=== PATIENT | male | born 1980 | race African-American/Black ===

== ENCOUNTER 2017-08-05 09:31 | Emergency (ER) | payer OTHER ==
[~2017-08-05] VITALS: Ht 154.9 cm; Wt 102.6 kg
[2017-08-05] MEDS ORDERED: FLONASE16 G1 BOTH NARES (11:00)
[2017-08-05] MEDS ORDERED: ZYRTEC10 M3 PO (11:00)
[2017-08-05] MEDS ORDERED: AUGMENTIN875 MG PO (11:00)
[2017-08-05 11:20] VITALS: BP 130/80
== END 2017-08-05 11:21 | disposition home or self-care (01) ==
LOC: EME 09:31
DX: J32.9 Chronic sinusitis, unspecified (principal); J30.9 Allergic rhinitis, unspecified
CPT/HCPCS: 80053; 81003; 83690; 85025; 99281; 99283; G0480